=== PATIENT | female | born 1950 | race Asian ===

== ENCOUNTER 2018-05-11 11:03 | Day surgery (SDC) | payer OTHER ==
[2018-05-11] MEDS ORDERED: SOD CHLORIDE 0.9% 1,000 ML IV (11:47)
[2018-05-11] MEDS ORDERED: DIPHENHYDRAMINE 50 MG INJ (13:53)
[2018-05-11] MEDS ORDERED: LIDOCAINE 1%/EPI 30 ML INJ (13:53)
[2018-05-11] MEDS ORDERED: FENTAnyl 50 MCG/ML VIAL (13:53)
== END 2018-05-11 16:45 | disposition home or self-care (01) ==
LOC: SDS 11:03
DX: C50.912 Malignant neoplasm of unspecified site of left female breast (principal)
CPT/HCPCS: 36590